=== PATIENT | male | born 1985 | race Caucasian/White ===

== ENCOUNTER 2017-10-26 20:37 | Emergency (ER) | payer OTHER ==
[~2017-10-26] VITALS: Ht 182.9 cm; Wt 145.2 kg
[~2017-10-26 20:37] MED LIST: IBUPROFEN 800800 M1 PO
[2017-10-26 21:51] LABS: ABSOLUTE BASOPHILS 0.1 thou/uL (0.0-0.2); ABSOLUTE EOSINOPHILS 0.3 thou/uL (0.0-0.7); ABSOLUTE LYMPHOCYTES 2.3 thou/uL (0.8-5.3); ABSOLUTE MONOCYTES 0.5 thou/uL (0.0-1.2); ABSOLUTE NEUTROPHILS 4.8 thou/uL (1.6-8.1); BASOPHILS 0.8 %; EOSINOPHILS 3.6 %; HEMATOCRIT 44.5 % (42.0-52.0); HEMOGLOBIN 15.1 gm/dL (14.0-18.0); LYMPHOCYTES 29.2 %; MCH 29.1 pg (26.0-34.0); MCHC 33.9 g/dL (28.0-37.0); MCV 85.8 fL (80.0-100.0); MONOCYTES 6.5 %; NUCLEATED RBCS 0 /100WBC; PLATELET COUNT* 302 thou/uL (150-400); POLYS 59.9 %; RBC 5.18 mil/uL (4.50-6.00); RDW-CV 13.7 % (10.5-14.5); WBC 7.9 thou/uL (4.0-11.0)
[2017-10-26 21:59] LABS: ANION GAP 8 mmol/L (7-16); BUN 15 mg/dL (7-18); CALCIUM 8.6 mg/dL (8.5-10.1); CHLORIDE 105 mmol/L (98-107); CO2 29 mmol/L (21-32); CREATININE 0.8 mg/dL (0.6-1.3); GLUCOSE 100 mg/dL (70-99); POTASSIUM 3.4 mmol/L (3.5-5.1); SODIUM 142 mmol/L (136-145)
[2017-10-26 22:05] LABS: ALBUMIN 3.6 g/dL (3.4-5.0); ALKALINE PHOSPHATASE 160 U/L (46-116); SGOT 33 U/L (15-37); SGPT 93 U/L (30-65); TOTAL BILIRUBIN 0.4 mg/dL (<0.1-1.0); TOTAL PROTEIN 7.4 g/dL (6.4-8.2); TROPONIN-I LEVEL <0.06 ng/mL (<0.06)
[2017-10-26 22:28] LABS: URINE BILIRUBIN NEGATIVE (Negative); URINE BLOOD NEGATIVE (Negative); URINE CLARITY CLEAR; URINE COLOR YELLOW; URINE GLUCOSE-RANDOM NEGATIVE (Negative); URINE KETONES NEGATIVE (Negative); URINE LEUKOCYTES-REFLEX NEGATIVE (Negative); URINE NITRITE-REFLEX NEGATIVE (Negative); URINE PROTEIN NEGATIVE (Negative); URINE SPECIFIC GRAVITY 1.025 (1.005-1.030)
[2017-10-26 22:39] LABS: AMP/METHAMP Negative (Negative); BARBITURATES Negative (Negative); BENZODIAZEPINES Negative (Negative); COCAINE Negative (Negative); METHADONE Negative (Negative); OPIATES Negative (Negative); PCP Negative (Negative); THC Negative (Negative)
[2017-10-27 00:18] VITALS: BP 117/68
--- NOTE | 2017-10-27 13:40 | EKG ---
[place] [address] ELECTROCARDIOGRAM REPORT Name: JOHANNY JENSEN [facility] [id number] Admission: 10/26/17 Attend Phys: Discharge: 10/27/17 Date of : 85 Report #: [id number] THIS REPORT FOR: //name// [facility] ED Test Date: 2017-10-26 Test Time: 21:08:42 Pat Name: JOHANNY JENSEN Department: Room: Gender: Pesticide Applicator: GEENA Garcia : 1985 Requested By: Maine Wolff Order Number: [id number] MD: Jose Martin De Paz Measurements Intervals [place] Rate: 84 P: 38 NV: 183 QRS: -16 QRSD: 97 T: 17 QT: 380 QTc: 450 Interpretive Statements Sinus rhythm Borderline left axis deviation Low voltage, precordial leads Compared to ECG 02/20/2017 09:45:23 Low QRS voltage now present Electronically Signed On 10-27-2017 13:39:46 [employer] by Jose Martin De Paz [email or web address] <ELECTRONICALLY SIGNED> By: Jose Martin De Paz MD, [facility] 10/27/17 1339 07 07 Jose Martin De Paz MD, FACC /EPI
== END 2017-10-27 00:18 | disposition home or self-care (01) ==
LOC: M.ERS 20:37
PROVIDERS: Personal Emergency Response Attendant
DX: R55 Syncope and collapse (principal); F17.200 Nicotine dependence, unspecified, uncomplicated; Z98.890 Other specified postprocedural states

== ENCOUNTER 2017-11-11 16:46 | Emergency (ER) | payer OTHER ==
[~2017-11-11] VITALS: Ht 182.9 cm; Wt 161.0 kg
[2017-11-11] MEDS ORDERED: HYDROCODONE-AP1 EAC6 PO (18:08)
[2017-11-11 18:21] VITALS: BP 112/71
== END 2017-11-11 18:22 | disposition home or self-care (01) ==
LOC: M.ERS 16:46
DX: M25.561 Pain in right knee (principal)